=== PATIENT | female | born 1980 | race Two or more races ===

== ENCOUNTER 2016-12-04 15:06 | Emergency (ER) | payer OTHER ==
[~2016-12-04] VITALS: Ht 160 cm; Wt 61.2 kg
[2016-12-04 15:59] VITALS: BP 123/61
[2016-12-04] MEDS ORDERED: NAPR500T PO (17:04)
--- NOTE | 2016-12-04 17:04 | PHYS DOC ---
Past Medical History Past Medical History: High Cholesterol, Hypertension Past Surgical History: No Surgical History Alcohol Use: None Drug Use: None Adult General Chief Complaint Chief Complaint: HEADACHE HPI HPI Patient is a 36 year old female who presents with complaint of headache and right shoulder pain. Patient states that 3 days ago while at work she was taking trash out to the dumpster when she lost her balance and fell, striking the right side of her head into a wall. Patient states that she lost consciousness briefly as a result of her fall. Patient also states that she had injured her shoulder during the fall. The patient states initially she was told to go back to work. Patient states that throughout the weekend she has had headaches and intermittent dizziness. Patient states that she is not currently on any blood thinners. The patient states that she is having pain along her right shoulder. Patient states that she is able to lift the arm up above her head but states that that causes pain along the posterior aspect of her shoulder. Patient also states that she has been having numbness in her right arm. Patient denies any shortness of breath, chest pain, vision loss, difficulty with speech or swallowing, nausea, or vomiting. Patient rates her pain as 8 out of 10. Patient states that she has taken ibuprofen with no relief in symptoms. Review of Systems Review of Systems Constitutional: Denies fever or chills [] Eyes: Denies change in visual acuity, redness, or eye pain [] HENT: Denies nasal congestion or sore throat [] Respiratory: Denies cough or shortness of breath [] Cardiovascular: Denies chest pain or edema [] GI: Denies abdominal pain, nausea, vomiting, bloody stools or diarrhea [] : Denies dysuria or hematuria [] Musculoskeletal: Right shoulder pain [] Integument: Denies rash or skin lesions [] Neurologic: Headache, numbness in right upper extremity, denies focal weakness [] Allergies Allergies Allergies Coded Allergies Type Severity Reaction Last Updated Verified No Known Drug Allergies 12/04/16 No Physical Exam Physical Exam Constitutional: Alert, afebrile, appears in mild to moderate discomfort. [] HENT: Normocephalic, atraumatic, mild right frontal scalp tenderness to palpation, bilateral external ears normal, oropharynx moist, no oral exudates, nose normal. [] Eyes: PERRLA, EOMI, conjunctiva normal, no discharge. [] Neck: Normal range of motion, no tenderness, supple, no stridor. [] Cardiovascular:Heart rate regular rhythm, no murmur [] Lungs & Thorax: Bilateral breath sounds clear to auscultation [] Abdomen: Bowel sounds normal, soft, no tenderness, no masses, no pulsatile masses. [] Skin: Warm, dry, no erythema, no rash. [] Back: No tenderness, no CVA tenderness. [] Extremities: No obvious deformity to right shoulder, full range of motion present, pain with abduction and full flexion of right upper extremity at shoulder, cash applications associate strength normal, pulses 2+ distally. [] Neurologic: Alert and oriented X 3, normal motor function, reported decrease in sensation in all 5 digits of right hand with light touch, pressure sensation intact. [] Current Patient Data Vital Signs Vital Signs Date Time Temp Pulse Resp B/P (MAP) Pulse Ox O2 Delivery O2 Flow Rate FiO2 12/04/16 15:59 97.8 54 17 123/61 (81) 98 Room Air 97.8 EKG EKG Not performed [] Radiology/Procedures Radiology/Procedures Not performed [] Course & Med Decision Making Course & Med Decision Making Pertinent Labs and Imaging studies reviewed. (See chart for details) Patient's symptoms are consistent with closed head injury with concussion as well as possible right brachial plexus injury and right low suspicion based off exam of fracture in the right shoulder. The patient has no localizing symptoms on exam that are consistent with intracranial mass effect or bleeding, thus given the patient's injury taking place 3 days ago when not being on blood thinners, I do not feel that CT imaging of the head is necessary at this time. Spoke with patient regarding treatment including use of Tylenol and use of prescription Naprosyn for symptoms. Advised the patient to take 2 days off of work to help with symptom improvement. The patient will be cleared for return in 2 days to work with restrictions of use of right upper extremity. Advised follow-up in one week with primary doctor for reevaluation before returning to full active duty. Advised return emergency department for any worsening symptoms. Patient voiced understanding and in agreement with treatment plan. Dragon Disclaimer Dragon Disclaimer This electronic medical record was generated, in whole or in part, using a voice recognition dictation system. Departure Departure Impression: Primary Impression: Closed head injury with concussion Additional Impression: Right shoulder injury Disposition: HOME, SELF-CARE Condition: IMPROVED Referrals: NO PCP (PCP) Patient Instructions: Head Injury, Adult, Shoulder Pain Additional Instructions: Follow-up in one week with your primary doctor for reevaluation. Return to the emergency department for any worsening symptoms. Scripts Naproxen (NAPROSYN) 500 Mg Tablet 1 TAB PO BID Y for HEADACHE, #20 TAB 0 Refills Prov: ANTWAN HUTTON MD 12/04/16 Problem Qualifiers Primary Impression: Closed head injury with concussion Encounter type: initial encounter Loss of consciousness presence/duration: with LOC of 30 min or less Qualified Codes: S06.0X1A - Concussion with loss of consciousness of 30 minutes or less, initial encounter Additional Impression: Right shoulder injury Encounter type: initial encounter Qualified Codes: S49.91XA - Unspecified injury of right shoulder and upper arm, initial encounter ANTWAN HUTTON MD Dec 04, 2016 17:04
== END 2016-12-04 17:12 | disposition home or self-care (01) ==
LOC: ER 15:19
DX: S06.0X1A Concussion with loss of consciousness of 30 minutes or less, initial encounter (principal); S49.91XA Unspecified injury of right shoulder and upper arm, initial encounter; E78.00 Pure hypercholesterolemia, unspecified; I10 Essential (primary) hypertension; W19.XXXA Unspecified fall, initial encounter; Y93.89 Activity, other specified; Y92.69 Other specified industrial and construction area as the place of occurrence of the external cause; Y99.0 Civilian activity done for income or pay
CPT/HCPCS: 99282

== ENCOUNTER 2016-12-08 18:15 | Emergency (ER) | payer SELFPAY ==
[~2016-12-08] VITALS: Ht 162.6 cm; Wt 59.0 kg
[~2016-12-08 18:15] MED LIST: NAPR500T PO
[2016-12-08] MEDS ORDERED: IV NORMAL SALINE 500ML BAG 500 ML IV ONE (19:00)
[2016-12-08] MEDS ORDERED: ONDANSETRON PF 4 MG/2 ML VIAL. IV ONE (19:15)
[2016-12-08] MEDS ORDERED: fentaNYL PF VIAL 100 MCG/2 ML VIAL IV ONE (19:15)
--- NOTE | 2016-12-08 19:29 | PHYS DOC ---
Past Medical History Past Medical History: High Cholesterol, Hypertension Past Surgical History: No Surgical History Alcohol Use: None Drug Use: None Adult General Chief Complaint Chief Complaint: DIZZY/LIGHT HEADED HPI HPI Patient is a 36 year old female who presents with complaint of dizziness and headache. Patient was seen on December 04, 2016 where she was evaluated 3 days after experiencing a head injury. Patient states that she was at work and fell while trying to take out the trash at her work. The patient hit the right side of her head and stated that she had lost consciousness. Patient had also injured her right upper extremity. Patient was diagnosed with a closed head injury with concussion symptoms. The patient was started on Naprosyn therapy at that time and discharge. Patient presented to [facility] today for medical clearance. She was referred to the emergency department today as she is having persistent headache and dizziness. The patient states that her symptoms have not changed since she was here 4 days ago. The patient did not have CT imaging on her initial visit. Due to her persistence of symptoms, she was told at [facility] that she would need to come to the emergency department and likely receive a CT scan to rule out any other acute pathology. Review of Systems Review of Systems Constitutional: Denies fever or chills [] Eyes: Denies change in visual acuity, redness, or eye pain [] HENT: Denies nasal congestion or sore throat [] Respiratory: Denies cough or shortness of breath [] Cardiovascular: Denies chest pain or edema [] GI: Denies abdominal pain, nausea, vomiting, bloody stools or diarrhea [] : Denies dysuria or hematuria [] Musculoskeletal: Right upper extremity pain [] Integument: Denies rash or skin lesions [] Neurologic: Headache, dizziness, denies focal weakness or sensory changes [] Current Medications Current Medications Current Medications Medications (Trade) Dose Ordered Sig/Kristen Start Time Stop Time Status Last Admin Dose Admin Diazepam (Valium) 2 mg 1X ONCE 12/08/16 19:15 12/08/16 19:16 DC 12/08/16 19:15 2 MG Fentanyl Citrate (Fentanyl 2ml Vial) 25 mcg 1X ONCE 12/08/16 19:15 12/08/16 19:16 DC 12/08/16 19:16 25 MCG Ketorolac Tromethamine (Toradol) 30 mg 1X ONCE 12/08/16 20:00 12/08/16 20:01 DC 12/08/16 20:06 30 MG Ondansetron HCl (Zofran) 4 mg 1X ONCE 12/08/16 19:15 12/08/16 19:16 DC 12/08/16 19:15 4 MG Sodium Chloride 500 ml @ 500 mls/hr 1X ONCE 12/08/16 19:00 12/08/16 19:59 DC 12/08/16 19:14 500 MLS/HR Allergies Allergies Allergies Coded Allergies Type Severity Reaction Last Updated Verified No Known Drug Allergies 12/04/16 No Physical Exam Physical Exam Constitutional: Alert, afebrile, appears in mild discomfort. [] HENT: Normocephalic, atraumatic, bilateral external ears normal, oropharynx moist, no oral exudates, nose normal. [] Eyes: PERRLA, EOMI, conjunctiva normal, no discharge. [] Neck: Normal range of motion, no tenderness, supple, no stridor. [] Cardiovascular:Heart rate regular rhythm, no murmur [] Lungs & Thorax: Bilateral breath sounds clear to auscultation [] Abdomen: Bowel sounds normal, soft, no tenderness, no masses, no pulsatile masses. [] Skin: Warm, dry, no erythema, no rash. [] Back: No tenderness, no CVA tenderness. [] Extremities: No tenderness, no cyanosis, no clubbing, ROM intact, no edema. [] Neurologic: Alert and oriented X 3, normal motor function, normal sensory function, no focal deficits noted. [] Current Patient Data Vital Signs Vital Signs Date Time Temp Pulse Resp B/P (MAP) Pulse Ox O2 Delivery O2 Flow Rate FiO2 12/08/16 19:45 60 20 104/58 (73) 95 Room Air 12/08/16 18:20 97.8 97.8 Lab Values Laboratory Tests Test 12/08/16 18:29 12/08/16 19:20 POC Urine HCG, Qualitative Hcg negative (Negative) Urine Collection Type Unknown Urine Color Yellow Urine Clarity Clear Urine pH 6.0 Urine Specific [place] 1.015 Urine Protein Negative mg/dL (NEG-TRACE) Urine Glucose (UA) Negative mg/dL (NEG) Urine Ketones (Stick) Negative mg/dL (NEG) Urine Blood Negative (NEG) Urine Nitrite Negative (NEG) Urine Bilirubin Negative (NEG) Urine Urobilinogen Dipstick 0.2 mg/dL (0.2 mg/dL) Urine Leukocyte Esterase Small (NEG) Urine RBC Occ /HPF (0-2) Urine WBC Occ /HPF (0-4) Urine Squamous Epithelial Cells Few /LPF Urine Bacteria 0 /HPF (0-FEW) Urine Mucus Mod /LPF EKG EKG Not performed [] Radiology/Procedures Radiology/Procedures [facility] [address] [place] [address] IMAGING REPORT Signed PATIENT: MAR LACEY ACCOUNT: [id number] : 1980 LOCATION: ER AGE: 36 SEX: F EXAM STATUS: REG ER ORD. PHYSICIAN: ANTWAN HUTTON MD REASON: head injury one week ago with persistent symptoms PROCEDURE: CT HEAD WO CONTRAST CT head without intravenous contrast History: Dizziness and lightheadedness since fall one week ago. Comparison: None. Technique: Axial images are obtained of the head from the skull base through the vertex without IV contrast. Exposure: One or more of the following individualized dose reduction techniques were utilized for this examination: 1. Automated exposure control 2. Adjustment of the mA and/or kV according to patient size 3. Use of iterative reconstruction technique Findings: The ventricles are appropriate in size, shape, and location for the patient's age. No obvious intracranial mass, mass-effect, midline shift, hemorrhage or obvious acute infarction is identified. Basilar cisterns are patent. Bone windows demonstrate no acute calvarial abnormality. The visualized paranasal sinuses appear clear. Impression: 1. No acute intracranial process. Electronically signed by: Jesse Ornelas MD (12/08/2016 7:25 PM) DICTATED and SIGNED BY: JESSE ORNELAS MD DATE: 12/08/161922 CC: ANTWAN HUTTON MD; NO PCP ~ [] Course & Med Decision Making Course & Med Decision Making Pertinent Labs and Imaging studies reviewed. (See chart for details) Patient's head CT was negative. Patient's symptoms are consistent with postconcussive syndrome. The patient was prescribed meclizine to help with symptoms of dizziness. Patient referred to Dr. Christine of neurology for follow -up in one week if symptoms persist. Advised return emergency department for worsening symptoms. Patient voiced understanding and in agreement with treatment plan. Dragon Disclaimer Dragon Disclaimer This electronic medical record was generated, in whole or in part, using a voice recognition dictation system. Departure Departure Impression: Primary Impression: Post concussion syndrome Disposition: 01 HOME, SELF-CARE Condition: STABLE Referrals: NO PCP (PCP) BC CHRISTINE MD Patient Instructions: Post-Concussion Syndrome Additional Instructions: Follow-up with Dr. Christine of neurology in one week if your symptoms persist. Return to the emergency department for any worsening symptoms. Scripts Meclizine Hcl (MECLIZINE HCL) 25 Mg Tablet 1 TAB PO PRN TID Y for DIZZINESS, #30 TAB Prov: ANTWAN HUTTON MD 12/08/16 ANTWAN HUTTON MD Dec 08, 2016 19:29
[2016-12-08 19:35] LABS: BILIRUBIN,URINE NEGATIVE (NEG); GLUCOSE,URINE NEGATIVE (NEG); NITRITE,URINE NEGATIVE (NEG); PROTEIN,URINE NEGATIVE (NEG-TRACE); UROBILINOGEN,URINE 0.2 mg/dL (0.2 mg/dL)
[2016-12-08 19:45] VITALS: BP 104/58
[2016-12-08 19:48] LABS: BACTERIA,URINE 0 /HPF (0-FEW); RBC,URINE OCC /HPF (0-2); SQUAMOUS EPITHELIAL CELL,UR FEW /LPF; WBC,URINE OCC /HPF (0-4)
[2016-12-08] MEDS ORDERED: MECL25TA3 PO (19:53)
[2016-12-08] MEDS ORDERED: KETOROLAC TROMETHAMINE 30 MG/ML INJ. IV ONE (20:00)
== END 2016-12-08 20:15 | disposition home or self-care (01) ==
LOC: ER 18:15 → EDBD 18:15 → ER 20:15
DX: F07.81 Postconcussional syndrome (principal); E78.00 Pure hypercholesterolemia, unspecified; I10 Essential (primary) hypertension; W18.39XA Other fall on same level, initial encounter; Y93.89 Activity, other specified; Y99.8 Other external cause status; Y92.89 Other specified places as the place of occurrence of the external cause
CPT/HCPCS: 70450; 81001; 81025; 87086; 96361; 96374; 96375; 99285; J1885; J2405; J3010; J3360; J7040